=== PATIENT | male | born 1975 | race Caucasian/White ===

== ENCOUNTER 2018-08-18 09:40 | Emergency (ER) | payer BC ==
[~2018-08-18] VITALS: Ht 182.9 cm; Wt 77.3 kg
[~2018-08-18 09:40] MED LIST: NO HOME MEDICATIONS; PRILOSEC 20MG20 MG PO; VALIUM5 MG PO; XANAX 0.5MG0.5 MG PO
[2018-08-18 09:56] VITALS: BP 122/81; PULSE 92; TEMP 97.9
== END 2018-08-18 10:19 | disposition left against medical advice (07) ==
LOC: COL.ER 09:40
DX: R05 Cough (principal); R49.1 Aphonia

== ENCOUNTER 2019-02-25 06:15 | Day surgery (SDC) | payer BC ==
[~2019-02-25] VITALS: Ht 182.9 cm; Wt 73.2 kg
[2019-02-25] MEDS ORDERED: BENADRYL ALLERG25 M2 PO (06:29)
[2019-02-25] MEDS ORDERED: XANAX 0.5MG0.5 MG PO (06:30)
[2019-02-25] MEDS ORDERED: THE MEDICINE SH1 T18 PO (06:30)
[2019-02-25 07:00] VITALS: BP 133/85; PULSE 90; TEMP 97.9
[2019-02-25 07:50] VITALS: BP 116/81; PULSE 83; TEMP 98
--- NOTE | 2019-02-25 07:50 | NUR ---
Pt arrived back to Endo room 1 after procedure. Pt drowsy, oriented x4. Assist x1 pt to chair from stretcher. Steady gait. Pt's in room. Pt denies any pain or nausea. Requested water, pudding and muffin at this time. Report received from BHARATH Persaud.
[2019-02-25 08:05] VITALS: BP 113/84; PULSE 82; TEMP 98
--- NOTE | 2019-02-25 08:05 | NUR ---
Pt tolerating sips of water and food. Denies any nausea or pain. Pt's remains in room. VSS.
[2019-02-25 08:20] VITALS: BP 117/77; PULSE 82; TEMP 97.5
--- NOTE | 2019-02-25 08:35 | NUR ---
Discharge instructions, med list, and procedure information given to pt and pt's . Answered all questions to pt and pt's satisfaction. Signed forms in chart. Pt discharged from [facility] and left by WC to private vehicle driven by pt's .
== END 2019-02-25 08:35 | disposition home or self-care (01) ==
LOC: SDCO 06:15
DX: K60.1 Chronic anal fissure (principal); K92.1 Melena; K62.89 Other specified diseases of anus and rectum; F41.9 Anxiety disorder, unspecified; Z87.891 Personal history of nicotine dependence; N48.89 Other specified disorders of penis; Z88.5 Allergy status to narcotic agent; Z86.010 Personal history of colon polyps
CPT/HCPCS: J1200; J2250; J3010; J7030

== ENCOUNTER 2021-10-22 17:22 | Emergency (ER) | payer BC ==
[~2021-10-22] VITALS: Ht 180.3 cm; Wt 77.3 kg
[~2021-10-22 17:22] MED LIST changes: +BENADRYL ALLERG25 M2 PO; +THE MEDICINE SH1 T18 PO
[2021-10-22 18:07] VITALS: TEMP 99
[2021-10-22 18:27] LABS: COLLECTION METHOD CLEAN CATCH
[2021-10-22 18:40] LABS: PH 7 (5-8); SQUAMOUS EPITHELIAL None Seen /hpf (0-10); URINE APPEARANCE Clear (CLEAR/HAZY); URINE BACTERIA None Seen /hpf (NONE SEEN); URINE BILIRUBIN Negative (NEGATIVE); URINE BLOOD Negative (NEGATIVE); URINE COLOR Yellow (YELLOW); URINE GLUCOSE Negative (NEGATIVE); URINE KETONE 1+ (NEGATIVE); URINE LEUKOCYTE ESTERASE Negative (NEGATIVE); URINE NITRATE Negative (NEGATIVE); URINE PROTEIN(semi-quant) Negative (NEGATIVE); URINE RBC 0-2 /hpf (0-2); URINE UROBILINOGEN Negative (NEGATIVE)
[2021-10-22 19:06] LABS: BASO # 0.1 K/mm3 (0.0-0.2); BASO % 0.8 % (0.0-2.0); EOS # 0.3 K/mm3 (0.0-0.7); EOS % 3.2 % (0.0-4.0); GRAN # 7.6 K/mm3 (1.4-6.5); HEMATOCRIT 39.8 % (42.0-52.0); HEMOGLOBIN 13.7 g/dl (13.5-18.0); LYMPH # 0.4 K/mm3 (1.2-3.4); LYMPH % 4.2 % (20.0-51.0); MEAN CELL VOLUME 86 fl (80.0-100.0); MEAN CORPUSCULAR HEMOGLOBIN 30 pg (27-31); MEAN CORPUSCULAR HGB CONC 34 g/dl (33.0-37.0); MEAN PLATELET VOLUME 8.9 fl (7.4-10.4); MONO # 1.4 K/mm3 (0.1-0.6); MONO % 14.2 % (1.7-9.3); PLATELET COUNT 291 K/mm3 (130-400); RED BLOOD COUNT 4.65 M/mm3 (4.20-5.60); REDCELL DISTRIBUTION WIDTH-CV 13.4 % (11.5-14.5)
[2021-10-22 19:39] LABS: ALANINE AMINOTRANSFERASE 20 U/L (0-55); ALKALINE PHOSPHATASE 80 U/L (40-150); ANION GAP 9 mmol/L (7-16); AST,SGOT 23 U/L (5-34); BILIRUBIN,TOTAL 0.2 mg/dL (0.2-1.2); BLOOD UREA NITROGEN 16 mg/dL (9-21); CALCIUM 8.7 mg/dL (8.4-10.2); CARBON DIOXIDE 22 mmol/L (22-29); CHLORIDE 105 mmol/L (98-107); GLUCOSE 92 mg/dL (70-99); LIPASE 20 U/L (8-78); POTASSIUM 3.7 mmol/L (3.5-4.5); SODIUM 136 mmol/L (136-145); TOTAL PROTEIN 7.2 gm/dL (6.2-8.1)
[2021-10-22 19:47] LABS: TROPONIN-I < 0.010 ng/mL (0.00-0.033)
[2021-10-22 20:13] LABS: CREATININE, serum 1.04 mg/dL (0.72-1.25)
[2021-10-22 21:35] VITALS: BP 144/78; PULSE 76
== END 2021-10-22 21:35 | disposition home or self-care (01) ==
LOC: COL.ER 17:22
PROVIDERS: Family Medicine; Physician Assistant
DX: U07.1 COVID-19 (principal); F32.A Depression, unspecified; F17.210 Nicotine dependence, cigarettes, uncomplicated; Z79.899 Other long term (current) drug therapy
CPT/HCPCS: J7030

== ENCOUNTER → 2023-02-04 | Outpatient (CLI) | payer BC ==
[2023-02-04 12:36] LABS: C-REACTIVE PROTEIN 0.43 mg/dL (0.00-0.50)
[2023-02-04 23:12] LABS: PROCALCITONIN <0.05 ng/mL (0.00-0.09)
[2023-02-06 12:58] LABS: ANGIOTENSIN CONVERTING ENZYME 86 U/L (16 - 85)
[2023-02-08 15:27] LABS: HISTOPLASMA ID Negative (Negative); HISTOPLASMA MYCELIAL Negative (Negative); HISTOPLASMA YEAST Negative (Negative)
== END ==
LOC: COL.LAB 11:29
PROVIDERS: Internal Medicine Pulmonary Disease
DX: R93.89 Abnormal findings on diagnostic imaging of other specified body structures (principal)

== ENCOUNTER → 2023-03-17 | Outpatient (CLI) | payer BC | LOC: COL.LAB 15:49 | DX: R93.89 Abnormal findings on diagnostic imaging of other specified body structures (principal) ==

== ENCOUNTER → 2023-03-20 | Outpatient (CLI) | payer BC | LOC: COL.PUL 07:40 | DX: R06.02 Shortness of breath (principal) ==